=== PATIENT | female | born 1960 | race Caucasian/White ===

== ENCOUNTER 2019-02-06 22:54 | Emergency (ER) | payer MEDICARE, OTHER ==
[~2019-02-06] VITALS: Ht 147.3 cm; Wt 56.7 kg
[~2019-02-06 22:54] MED LIST: ACTICIN 5% CREA60 G1 TOP; ALBUTEROL2.5 MG/31 INH; AMLODIPINE BESYL5 MG PO; AMPHETAMINE SAL15 MG PO; AMPHETAMINE SAL20 M1 PO; ANCEF 1GM1 GM/50 M1 IVPB; BACTROBAN CREAM30 G1 TOP; BENAZEPRIL HCL40 MG PO; BENTYL 20 MG TA20 M1 PO; BENTYL PO; BLOOD PRESSURE MED; BOOST237 M1 PO; COMPAZINE10 MG PO; CYCLOBENZAPRINE10 MG PO; DILAUDID 2 MG TA2 MG PO; DOXYCYCLINE 10100 MG; DULCOLAX5 MG PO; ENOXAPARIN40 MG/0.1 SUBQ; FERREX 150150 MG PO; FERROUS SULFAT140 MG PO; FLEXERIL PO; GENTAMICIN 0.1%15 G2; GENTAMICIN 0.15 CR TOP; HRT; HRT PO; HYDROCODON-ACE1 EAC7 PO; HYDROCODONE-AP1 EAC6 PO; HYDROXYZINE HCL25 M1 PO; IRON325 PO; KEFLEX500 MG PO; LINZESS145 MCG PO; LINZESS290 MCG PO; LOVENOX40 MG/0.4 SUBQ; MECLIZINE HCL25 MG PO; MELOXICAM7.5 MG PO; MIRALAX17 GM PO; MIRALAX255 GM PO; MOBIC7.5 M1 PO; MOBIC7.5 MG PO; MORPHINE SULFATE ER PO; MS CONTIN15 MG PO; MS CONTIN30 MG PO; MUCINEX DM TABL1 TA1 PO; NEOSPORIN TP; NORCO 5-325 TA1 EACH PO; NORVASC5 M1 PO; OMEPRAZOLE 20 M20 M1 PO; ONDANSETRON HCL4 M2 PO; OXYBUTYNIN 5 MG5 M1 PO; OXYCODONE HCL 55 MG PO; OXYMORPHONE HCL30 MG PO; PERCOCET 10-321 EACH PO; PERCOCET PO; POTASSIUM20 PO; PREDNISONE 20 M20 M1 PO; PRILOSEC 20 MG20 MG PO; PRILOSEC PO; PROBIOTIC1 EACH PO; PROTONIX40 M1 PO; PROTONIX40 M4 PO; PROZAC10 MG PO; PROZAC20 MG; REMERON15 MG PO; SENNA PO; SENNA8.6 MG PO; STOOL SOFTENER1 EAC2 PO; TIZANIDINE HCL4 M1 PO; TOPAMAX 100 MG100 MG PO; TRIAMCINOLONE A80 GM TOP; ULTRAM 50MG TAB50 MG PO; UREA CREAM 40%1 TUBE TP; VALACYCLOVIR500 MG PO; VALIUM5 MG PO; VENTOLIN HFA INH8 GM IH; VICODIN 5-5001 EACH PO; VITAMIN D1000 UNI1 PO; ZOFRAN4 MG PO; ZOVIRAX200 MG PO; ZPAK PO; [UNRECOGNIZED DRUG - OTHER] INH; [UNRECOGNIZED DRUG - OTHER] PO; [UNRECOGNIZED DRUG - OTHER] TP; [UNRECOGNIZED DRUG - REMARK]
[2019-02-06] MEDS ORDERED: PROVIGIL 200 M200 MG (23:01)
[2019-02-07 00:17] LABS: ABSOLUTE BASOPHILS 0.1 thou/uL (0.0-0.2); ABSOLUTE EOSINOPHILS 0.3 thou/uL (0.0-0.7); ABSOLUTE LYMPHOCYTES 1.6 thou/uL (0.8-5.3); ABSOLUTE MONOCYTES 0.9 thou/uL (0.0-1.2); ABSOLUTE NEUTROPHILS 6.7 thou/uL (1.6-8.1); BASOPHILS 1.4 %; EOSINOPHILS 3.2 %; HEMATOCRIT 40.2 % (37.0-47.0); HEMOGLOBIN 13.3 gm/dL (12.0-15.0); LYMPHOCYTES 16.4 %; MCH 31.2 pg (26.0-34.0); MCV 94.4 fL (80.0-100.0); MONOCYTES 9.1 %; MPV 8.8 fl. (7.2-11.1); NUCLEATED RBCS 0 /100WBC; PLATELET COUNT* 259 thou/uL (150-400); POLYS 69.9 %; RBC 4.25 mil/uL (4.20-5.00); RDW-CV 13.9 % (10.5-14.5); WBC 9.6 thou/uL (4.0-11.0)
[2019-02-07 00:23] LABS: ANION GAP 15 mmol/L (7-16); BUN 43 mg/dL (7-18); CALCIUM 9.4 mg/dL (8.5-10.1); CHLORIDE 109 mmol/L (98-107); CO2 20 mmol/L (21-32); CREATININE 1.5 mg/dL (0.6-1.3); GLUCOSE 126 mg/dL (70-99); POTASSIUM 3.8 mmol/L (3.5-5.1); SODIUM 144 mmol/L (136-145)
[2019-02-07 00:30] LABS: ALCOHOL < 10 mg/dL (<10); SALICYLATE < 2.8 mg/dL (2.8-20.0)
[2019-02-07 00:32] LABS: ACETAMINOPHEN < 2 ug/mL (10-30); ALKALINE PHOSPHATASE 177 U/L (46-116); SGOT 45 U/L (15-37); SGPT 55 U/L (30-65); TOTAL BILIRUBIN 0.4 mg/dL (<0.1-1.0); TOTAL PROTEIN 7.4 g/dL (6.4-8.2); TROPONIN-I LEVEL <0.06 ng/mL (<0.06)
[2019-02-07 00:35] LABS: ICTOTEST (BILI CONFIRMATORY) Negative (Negative); URINE BILIRUBIN 1+ (Negative); URINE BLOOD NEGATIVE (Negative); URINE CLARITY CLEAR; URINE COLOR DARK YELLOW; URINE GLUCOSE-RANDOM NEGATIVE (Negative); URINE KETONES NEGATIVE (Negative); URINE LEUKOCYTES-REFLEX NEGATIVE (Negative); URINE NITRITE-REFLEX NEGATIVE (Negative); URINE PROTEIN NEGATIVE (Negative); URINE SPECIFIC GRAVITY >= 1.030 (1.005-1.030); URINE UROBILINOGEN 0.2 E.U./dl (0.2-1.0)
[2019-02-07 00:43] LABS: AMP/METHAMP Negative (Negative); BARBITURATES Negative (Negative); BENZODIAZEPINES Negative (Negative); COCAINE Negative (Negative); METHADONE Negative (Negative); OPIATES POSITIVE (Negative); PCP Negative (Negative); THC Negative (Negative)
--- NOTE | 2019-02-07 13:45 | EKG ---
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 MOY : 1960 Requested By: Savita Ward Order Number: [id number] MD: Niall Reddy Measurements Intervals [place] Rate: 107 P: 40 [place]: 145 QRS: -1 QRSD: 89 T: -62 QT: 341 QTc: 455 Interpretive Statements Sinus tachycardia Left atrial enlargement Borderline T abnormalities, diffuse leads Compared to ECG 06/16/2017 12:35:33 T-wave abnormality now present Sinus rhythm no longer present Electronically Signed On 02-07-2019 13:45:15 CDT by Niall Reddy [email or web address] <ELECTRONICALLY SIGNED> By: Niall Reddy MD, [facility] 02/07/19 1345 0018 0018 Niall Reddy MD, [facility] /EPI
[2019-02-07 14:59] VITALS: BP 155/76
== END 2019-02-07 15:01 ==
LOC: M.ERS 22:54
PROVIDERS: Emergency Medicine
DX: T43.692A Poisoning by other psychostimulants, intentional self-harm, initial encounter (principal); F29 Unspecified psychosis not due to a substance or known physiological condition; J45.909 Unspecified asthma, uncomplicated; K58.9 Irritable bowel syndrome, unspecified; K21.9 Gastro-esophageal reflux disease without esophagitis; Z88.6 Allergy status to analgesic agent; Z88.8 Allergy status to other drugs, medicaments and biological substances; Z86.14 Personal history of Methicillin resistant Staphylococcus aureus infection; Z96.653 Presence of artificial knee joint, bilateral; Z90.49 Acquired absence of other specified parts of digestive tract; Z90.710 Acquired absence of both cervix and uterus; Z86.2 Personal history of diseases of the blood and blood-forming organs and certain disorders involving the immune mechanism; Z98.890 Other specified postprocedural states; Y92.89 Other specified places as the place of occurrence of the external cause

== ENCOUNTER 2019-04-20 21:27 | Emergency (ER) | payer MEDICARE, OTHER ==
[~2019-04-20] VITALS: Ht 147.3 cm; Wt 57.6 kg
[~2019-04-20 21:27] MED LIST changes: +PROVIGIL 200 M200 MG
[2019-04-20] MEDS ORDERED: ACETAMINOPHEN-1 EAC1 PO (22:29)
[2019-04-20 22:44] VITALS: BP 165/94
== END 2019-04-20 22:46 | disposition home or self-care (01) ==
LOC: M.ERS 21:27
DX: R68.84 Jaw pain (principal); J45.909 Unspecified asthma, uncomplicated; K58.9 Irritable bowel syndrome, unspecified; K21.9 Gastro-esophageal reflux disease without esophagitis; Z88.6 Allergy status to analgesic agent; Z88.8 Allergy status to other drugs, medicaments and biological substances; Z96.653 Presence of artificial knee joint, bilateral; Z90.49 Acquired absence of other specified parts of digestive tract; Z90.710 Acquired absence of both cervix and uterus; Z86.2 Personal history of diseases of the blood and blood-forming organs and certain disorders involving the immune mechanism; Z98.890 Other specified postprocedural states; Z86.14 Personal history of Methicillin resistant Staphylococcus aureus infection

== ENCOUNTER 2019-07-30 14:51 | Emergency (ER) | payer MEDICARE, OTHER ==
[~2019-07-30] VITALS: Ht 144.8 cm; Wt 39.5 kg
[~2019-07-30 14:51] MED LIST changes: +ACETAMINOPHEN-1 EAC1 PO
[2019-07-30] MEDS ORDERED: METHYLPHENIDATE10 MG PO (15:15)
[2019-07-30 16:07] LABS: URINE BLOOD 2+ (Negative); URINE CLARITY CLEAR; URINE COLOR YELLOW; URINE GLUCOSE-RANDOM NEGATIVE (Negative); URINE KETONES 1+ (Negative); URINE LEUKOCYTES-REFLEX NEGATIVE (Negative); URINE NITRITE-REFLEX NEGATIVE (Negative); URINE PROTEIN TRACE (Negative); URINE SPECIFIC GRAVITY 1.025 (1.005-1.030); URINE UROBILINOGEN 0.2 E.U./dl (0.2-1.0)
[2019-07-30 16:08] LABS: URINE BILIRUBIN 1+ (Negative)
[2019-07-30 16:10] LABS: ICTOTEST (BILI CONFIRMATORY) Negative (Negative)
[2019-07-30 16:15] LABS: AMP/METHAMP Negative (Negative); BARBITURATES Negative (Negative); BENZODIAZEPINES Negative (Negative); COCAINE Negative (Negative); METHADONE Negative (Negative); OPIATES POSITIVE (Negative); PCP Negative (Negative); THC Negative (Negative)
[2019-07-30 16:18] LABS: SQUAMOUS >10 Many /LPF (0-3)
[2019-07-30 16:19] LABS: CRYSTALS None Seen /LPF (None Seen); HYALINE CASTS 0-3 Few /LPF (None Seen); MUCUS None Seen strn/LPF (None Seen)
[2019-07-30 16:20] LABS: URINE WBC-REFLEX 0-5 Rare /HPF (0-5)
[2019-07-30 16:21] LABS: URINE RBC 0-2 Rare /HPF (0-2)
[2019-07-30] MEDS ORDERED: KEFLEX500 M1 PO (16:50)
[2019-07-30 17:03] VITALS: BP 181/113
== END 2019-07-30 17:00 | disposition home or self-care (01) ==
LOC: M.ERS 14:51
PROVIDERS: Nurse Practitioner Family
DX: S80.212A Abrasion, left knee, initial encounter (principal); S30.810A Abrasion of lower back and pelvis, initial encounter; L02.215 Cutaneous abscess of perineum; J45.909 Unspecified asthma, uncomplicated; K58.9 Irritable bowel syndrome, unspecified; K21.9 Gastro-esophageal reflux disease without esophagitis; Z79.899 Other long term (current) drug therapy; Z86.2 Personal history of diseases of the blood and blood-forming organs and certain disorders involving the immune mechanism; Z96.653 Presence of artificial knee joint, bilateral; Z90.49 Acquired absence of other specified parts of digestive tract; Z88.6 Allergy status to analgesic agent; Z88.8 Allergy status to other drugs, medicaments and biological substances; Z98.890 Other specified postprocedural states; Z86.14 Personal history of Methicillin resistant Staphylococcus aureus infection; X58.XXXA Exposure to other specified factors, initial encounter; Y93.89 Activity, other specified; Y92.89 Other specified places as the place of occurrence of the external cause; Y99.8 Other external cause status

== ENCOUNTER 2019-08-01 02:29 | Emergency (ER) | payer MEDICARE, OTHER ==
[~2019-08-01] VITALS: Ht 147.3 cm; Wt 60.3 kg
[~2019-08-01 02:29] MED LIST changes: +KEFLEX500 M1 PO; +METHYLPHENIDATE10 MG PO
[2019-08-01] MEDS ORDERED: PREDNISONE50 MG PO (03:23)
[2019-08-01] MEDS ORDERED: VANOS60 GM TOP (03:23)
[2019-08-01 03:32] VITALS: BP 111/78
== END 2019-08-01 03:32 | disposition home or self-care (01) ==
LOC: M.ERS 02:29
DX: L25.9 Unspecified contact dermatitis, unspecified cause (principal); K58.9 Irritable bowel syndrome, unspecified; K21.9 Gastro-esophageal reflux disease without esophagitis; Z88.6 Allergy status to analgesic agent; Z88.8 Allergy status to other drugs, medicaments and biological substances; Z90.49 Acquired absence of other specified parts of digestive tract; Z96.653 Presence of artificial knee joint, bilateral; Z90.710 Acquired absence of both cervix and uterus; Z86.2 Personal history of diseases of the blood and blood-forming organs and certain disorders involving the immune mechanism; Z98.890 Other specified postprocedural states

== ENCOUNTER → 2019-09-01 | Outpatient (CLI) | payer MEDICARE, OTHER ==
[~2019-09-01] MED LIST changes: +PREDNISONE50 MG PO; +VANOS60 GM TOP
== END ==
LOC: M.RAD 15:34
DX: Z12.31 Encounter for screening mammogram for malignant neoplasm of breast (principal)

== ENCOUNTER 2019-10-06 19:59 | Emergency (ER) | payer MEDICARE, OTHER ==
[~2019-10-06] VITALS: Ht 147.3 cm; Wt 59.4 kg
[2019-10-06] MEDS ORDERED: LINZESS72 MCG PO (20:44)
[2019-10-06 21:12] LABS: URINE BILIRUBIN NEGATIVE (Negative); URINE BLOOD 3+ (Negative); URINE CLARITY TURBID; URINE COLOR BROWN; URINE GLUCOSE-RANDOM NEGATIVE (Negative); URINE KETONES NEGATIVE (Negative); URINE LEUKOCYTES-REFLEX 1+ (Negative); URINE NITRITE-REFLEX NEGATIVE (Negative); URINE PROTEIN 2+ (Negative); URINE SPECIFIC GRAVITY >= 1.030 (1.005-1.030); URINE UROBILINOGEN 0.2 E.U./dl (0.2-1.0)
[2019-10-06 21:15] LABS: AMORPHOUS URATES Moderate /LPF (None Seen); CASTS None Seen /LPF (None Seen); SQUAMOUS 0-3 Few /LPF (0-3)
[2019-10-06 21:16] LABS: BACTERIA-REFLEX >30 Many /HPF (None Seen); URINE RBC >20 Many /HPF (0-2); URINE WBC-REFLEX 6-15 Few /HPF (0-5)
[2019-10-06] MEDS ORDERED: CIPROFLOXACIN500 M1 PO (21:28)
[2019-10-06] MEDS ORDERED: PYRIDIUM200 MG PO (21:28)
[2019-10-06] MEDS ORDERED: VISTARIL 25 MG25 M1 PO (21:28)
[2019-10-06 21:34] VITALS: BP 120/75
== END 2019-10-06 21:36 | disposition home or self-care (01) ==
LOC: M.ERS 19:59
PROVIDERS: Family Medicine
DX: N39.0 Urinary tract infection, site not specified (principal); J45.909 Unspecified asthma, uncomplicated; K58.9 Irritable bowel syndrome, unspecified; K21.9 Gastro-esophageal reflux disease without esophagitis; Z88.6 Allergy status to analgesic agent; Z88.8 Allergy status to other drugs, medicaments and biological substances; Z96.653 Presence of artificial knee joint, bilateral; Z90.49 Acquired absence of other specified parts of digestive tract; Z90.710 Acquired absence of both cervix and uterus; Z86.14 Personal history of Methicillin resistant Staphylococcus aureus infection; Z98.890 Other specified postprocedural states; Z86.2 Personal history of diseases of the blood and blood-forming organs and certain disorders involving the immune mechanism

== ENCOUNTER 2019-10-10 02:00 | Inpatient (IN) | payer MEDICARE, OTHER ==
[~2019-10-10] VITALS: Ht 147.3 cm; Wt 59.0 kg
[~2019-10-10 02:00] MED LIST changes: +CIPROFLOXACIN500 M1 PO; +LINZESS72 MCG PO; +PYRIDIUM200 MG PO; +VISTARIL 25 MG25 M1 PO
[2019-10-10 02:02] VITALS: BP 163/77
[2019-10-10 02:42] LABS: HEMOGLOBIN 12.6 gm/dL (12.0-15.0); MCH 29.3 pg (26.0-34.0); MCHC 33.3 g/dL (28.0-37.0); MPV 8.6 fl. (7.2-11.1); NUCLEATED RBCS 0 /100WBC; PLATELET COUNT* 261 thou/uL (150-400); RBC 4.31 mil/uL (4.20-5.00); RDW-CV 14.2 % (10.5-14.5); WBC 7.5 thou/uL (4.0-11.0)
[2019-10-10 02:54] LABS: URINE BILIRUBIN NEGATIVE (Negative); URINE BLOOD 1+ (Negative); URINE CLARITY SL CLOUDY; URINE COLOR YELLOW; URINE GLUCOSE-RANDOM NEGATIVE (Negative); URINE KETONES NEGATIVE (Negative); URINE LEUKOCYTES-REFLEX NEGATIVE (Negative); URINE NITRITE-REFLEX NEGATIVE (Negative); URINE PROTEIN NEGATIVE (Negative); URINE SPECIFIC GRAVITY 1.015 (1.005-1.030); URINE UROBILINOGEN 0.2 E.U./dl (0.2-1.0)
[2019-10-10 02:55] LABS: CALCIUM 8.6 mg/dL (8.5-10.1); CREATININE 1.1 mg/dL (0.6-1.3); POTASSIUM 3.3 mmol/L (3.5-5.1)
[2019-10-10 03:00] LABS: ALBUMIN 3.6 g/dL (3.4-5.0); TOTAL BILIRUBIN 0.2 mg/dL (<0.1-1.0); TOTAL PROTEIN 6.9 g/dL (6.4-8.2)
[2019-10-10 03:30] LABS: CASTS None Seen /LPF (None Seen); SQUAMOUS 4-10 Moderate /LPF (0-3); URINE RBC 0-2 Rare /HPF (0-2); URINE WBC-REFLEX None Seen /HPF (0-5)
[2019-10-10 03:31] LABS: BACTERIA-REFLEX 1-9 Few /HPF (None Seen)
[2019-10-10 03:32] LABS: AMORPHOUS PHOSPHATES Many /LPF (None Seen)
[2019-10-10 03:55] LABS: ABSOLUTE EOSINOPHILS 0.1 thou/uL (0.0-0.7); ABSOLUTE LYMPHOCYTES 0.5 thou/uL (0.8-5.3); ABSOLUTE MONOCYTES 0.1 thou/uL (0.0-1.2); ABSOLUTE NEUTROPHILS 6.9 thou/uL (1.6-8.1)
[2019-10-10 03:56] LABS: LARGE PLATELETS OCCASIONAL; PLATELET ESTIMATE ADEQUATE
[2019-10-10 06:20] VITALS: BP 156/91
[2019-10-10 06:34] VITALS: BP 157/81
[2019-10-10 08:00] VITALS: BP 135/89; BP 168/124
--- NOTE | 2019-10-10 08:51 | NUR ---
PT ADMITTED TO ROOM 226 @0620. ADMISSION HX AND ASSESSMENT DONE. PT ALERT AND ORIENTED. VSS ON RA. UP AD JULIA. PAIN AND NAUSEA MEDS GIVEN THIS AM. MEDS RECONCILED. NPO. IV SL. PT NOT ON MONITOR. CALL LIGHT WITHIN REACH. WILL CONTINUE TO MONITOR.
--- NOTE | 2019-10-10 10:07 | EKG ---
[place] [address] ELECTROCARDIOGRAM REPORT Name: ASTON GONZALEZ Room: [address] ADM IN .R.#: [id number] Admission: 10/10/19 Attend Phys: lGenn Pino MD Discharge: Date of : 56 Report #: [id number] THIS REPORT FOR: //name// [facility] ED Test Date: 2019-10-10 Test Time: 02:15:58 Pat Name: ASTON GONZALEZ Department: Room: [facility] Gender: F Manager Lvn: : 1960 Requested By: Neymar Coleman Order Number: [id number] MD: Niall Reddy Measurements Intervals [place] Rate: 88 P: 42 LA: 185 QRS: -14 QRSD: 106 T: -5 QT: 432 QTc: 523 Interpretive Statements Sinus rhythm Probable left atrial enlargement Abnormal R-wave progression, late transition Borderline T abnormalities, inferior leads Prolonged QT interval Compared to ECG 02/07/2019 00:18:43 Sinus tachycardia no longer present T-wave abnormality still present Electronically Signed On 10-10-2019 10:07:21 FORKLIFT SUPERVISOR by Niall Reddy [email or web address] <ELECTRONICALLY SIGNED> By: Niall Reddy MD, FAC 10/10/19 1007 4 4 Niall Reddy MD, FAC /EPI
[2019-10-10 10:52] VITALS: BP 139/91
--- NOTE | 2019-10-10 12:01 | NUR ---
ASSUMED PT CARE AT 0730. ASSESSMENT COMPLETED CHARTED. ABLE TO MAKE NEEDS KNOWN. UP TO NURSES DESK FOR PAIN MEDICATION OR SOMETHING EVERY HOUR. C/O RIGHT FLANK PAIN AND GAVE PRN MEDS PER EMAR. PT TRANSFERRED TO [facility] AROUND 1035. WILL CONTINUE TO MONITOR.
--- NOTE | 2019-10-10 13:00 | NUR ---
PT ARRIVED TO ROOM 109 AT APPROX 1040, REPORT RECIEVED FROM IDRIS DAVIS. PT A/O X4, APPEARS ANXIOUS, C/O N/V, PAIN MEDS GIVEN PRIOR TO ARRIVING, PT REPORTS FEELING BETTER. NPO FOR SURGERY. SPOKE TO PTS , UPDATED ON ROOM CHANGE AND SURGERY. WILL CONTINUE WITH PLAN OF CARE
--- NOTE | 2019-10-10 19:56 | NUR ---
I HAVE REVEWED AND AGREE WITH THE ASSESMENT OF IDRIS DAVIS ON 10/10/19
[2019-10-10 20:15] VITALS: BP 132/75
--- NOTE | 2019-10-11 02:51 | NUR ---
RECEIVED REPORT AND ASSUMED CARE AT 1900. VSS. PT REPORTS PAIN, PRN MEDICATION ADMIN PER EMAR. ASSESSMENT COMPLETED CHARTED. PT UP AD JULIA IN ROOM, ON RA. BED LOCKED IN LOWEST POSITION, CALL LIGHT WITHIN REACH.
[2019-10-11 05:44] LABS: ABSOLUTE BASOPHILS 0.1 thou/uL (0.0-0.2); ABSOLUTE EOSINOPHILS 0.3 thou/uL (0.0-0.7); ABSOLUTE LYMPHOCYTES 1.5 thou/uL (0.8-5.3); ABSOLUTE MONOCYTES 0.8 thou/uL (0.0-1.2); ABSOLUTE NEUTROPHILS 3.1 thou/uL (1.6-8.1); BASOPHILS 1.9 %; EOSINOPHILS 5.8 %; HEMATOCRIT 33.7 % (37.0-47.0); HEMOGLOBIN 11.4 gm/dL (12.0-15.0); LYMPHOCYTES 26.1 %; MCH 30.1 pg (26.0-34.0); MCHC 33.9 g/dL (28.0-37.0); MCV 88.8 fL (80.0-100.0); MPV 8.4 fl. (7.2-11.1); NUCLEATED RBCS 0 /100WBC; PLATELET COUNT* 227 thou/uL (150-400); POLYS 53.2 %; RBC 3.79 mil/uL (4.20-5.00); RDW-CV 14.7 % (10.5-14.5); WBC 5.8 thou/uL (4.0-11.0)
[2019-10-11 05:52] LABS: CALCIUM 8.2 mg/dL (8.5-10.1); POTASSIUM 3.4 mmol/L (3.5-5.1)
[2019-10-11 07:35] VITALS: BP 105/57
[2019-10-11] MEDS ORDERED: OXYBUTYNIN 5 MG5 M2 PO (09:50)
[2019-10-11] MEDS ORDERED: BACTRIM DS TAB1 EACH PO (09:51)
[2019-10-11] MEDS ORDERED: FLOMAX0.4 MG PO (09:51)
[2019-10-11] MEDS ORDERED: NORCO 5-325 TA1 EAC1 PO (09:52)
[2019-10-11 11:18] VITALS: BP 105/57
[2019-10-11 11:20] VITALS: BP 105/57
[2019-10-11 12:52] VITALS: BP 105/57
--- NOTE | 2019-10-11 12:52 | NUR ---
PT BELONGINGS GATHERED. IV REMOVED. PRESCRIPTIONS, CARE NOTES, AND DISCHARGE ORDERS GIVEN TO PATIENT. PT DENIED ANY FURTHER QUESTIONS OR CONCERNS AT THIS TIME. FALL RISK PRECAUTIONS IN PLACE. HOURLY ROUNDING COMPLETED. PT LEFT VIA WHEELCHAIR WITH NURSING STAFF TO HOME WITH SPOUSE.
--- NOTE | 2019-10-13 13:30 | OP ---
[address] [address] OPERATIVE REPORT Name: ASTON GONZALEZ Room: [address] IN ..#: [id number] Admission: 10/10/19 Attend Phys: Glenn Pino MD Discharge: 10/11/19 Date of : 56 Report #: [id number] THIS REPORT FOR: //name// CC: Margarito Pino DATE OF SERVICE: 10/10/2019 UROLOGY OPERATIVE NOTE PREOPERATIVE DIAGNOSIS: Right ureteral stone. POSTOPERATIVE DIAGNOSIS: Right ureteral stone. PROCEDURE PERFORMED: 1. Cystoscopy. 2. Right retrograde pyelogram. 3. Right ureteroscopy with laser lithotripsy and stone basket extraction. 4. Right ureteral stent placement. STAFF: Margarito Paez MD COMPLICATIONS: None. DRAINS: A 6 x 24 right ureteral stent. SPECIMENS: Right ureteral stone. ESTIMATED BLOOD LOSS: 0 mL. INDICATIONS: The patient is a 59-year-old female with a history of nephrolithiasis who presented to the ER this morning with right-sided flank pain. She was found to have a 6 mm right distal ureteral stone with proximal hydronephrosis. Her pain was poorly controlled and after a thorough discussion of this, the decision was made to proceed with ureteroscopy. DESCRIPTION OF PROCEDURE: On 10/10/2019, after consent was obtained, the patient was taken to the operating room and placed in supine position. Her genitals were then prepped and draped in normal sterile fashion after she was placed under general anesthesia. She received preoperative IV Cipro for antibiotic coverage. I began the procedure by inserting the 22.5-Estonian rigid cystoscope transurethrally without any difficulty. Once in the bladder, identified the right ureteral orifice. This was cannulated with a 5-Estonian open-ended stent. A retrograde pyelogram was performed, which demonstrated normal caliber ureter with mild hydronephrosis. At this point, a sensor wire was passed into the upper pole. I went through the cystoscope [place] [address] OPERATIVE REPORT Name: ASTON GONZALEZ Room: [address] IN ..#: [id number] Admission: 10/10/19 Attend Phys: Glenn Pino MD Discharge: 10/11/19 Date of : 56 Report #: [id number] semirigid ureteroscope. I passed this up alongside the sensor wire into the distal ureter where I identified the stone. A 365 micron laser fiber was utilized to break this up into four smaller fragments. A 1.5 nitinol basket was then utilized to grasp each of these fragments and pull these out of the urethra without any difficulty. I made one final pass of the ureteroscope up to the level of the UPJ. There was no evidence of any further stone burden and/or injury. I then selected a 6 x 24 stent, which passed up to the upper pole under fluoroscopic guidance and had a good coil in the urinary bladder under direct visual guidance. The patient's bladder was emptied. She was awakened from anesthesia. <ELECTRONICALLY SIGNED> By: Margarito Paez MD 10/13/19 1330 1244 1305[facility] Karma Paez MD /nt
== END 2019-10-11 12:53 | disposition home or self-care (01) | DRG 661 ==
LOC: M.ERS 02:00 → M.TBA-ER 04:16 → M.ORTHSURG 04:16 → M.2W 06:28 → M.ORTHSURG 10:40
PROVIDERS: Emergency Medicine Emergency Medical Services; Urology; ADMIT Internal Medicine
DX: N13.2 Hydronephrosis with renal and ureteral calculous obstruction (principal); Z96.653 Presence of artificial knee joint, bilateral; J45.909 Unspecified asthma, uncomplicated; G47.419 Narcolepsy without cataplexy; K58.9 Irritable bowel syndrome, unspecified; K21.9 Gastro-esophageal reflux disease without esophagitis; E86.0 Dehydration; E87.6 Hypokalemia; I73.9 Peripheral vascular disease, unspecified; Z88.8 Allergy status to other drugs, medicaments and biological substances; Z87.440 Personal history of urinary (tract) infections; Z90.49 Acquired absence of other specified parts of digestive tract; Z90.89 Acquired absence of other organs; Z90.710 Acquired absence of both cervix and uterus; Z79.2 Long term (current) use of antibiotics; Z79.891 Long term (current) use of opiate analgesic; Z79.899 Other long term (current) drug therapy

== ENCOUNTER → 2019-11-16 | Outpatient (CLI) | payer MEDICARE, OTHER ==
[~2019-11-16] MED LIST changes: +BACTRIM DS TAB1 EACH PO; +FLOMAX0.4 MG PO; +NORCO 5-325 TA1 EAC1 PO; +OXYBUTYNIN 5 MG5 M2 PO
== END ==
LOC: M.ULTRA 09:06
DX: N64.4 Mastodynia (principal)

== ENCOUNTER → 2020-05-20 | Emergency (ER) | payer MEDICARE, OTHER ==
[~2020-05-20] VITALS: Ht 147.3 cm; Wt 56.7 kg
[2020-05-20 20:02] VITALS: BP 132/68
== END ==
LOC: M.ERS 18:52
DX: S60.561A Insect bite (nonvenomous) of right hand, initial encounter (principal); K58.9 Irritable bowel syndrome, unspecified; K21.9 Gastro-esophageal reflux disease without esophagitis; J45.909 Unspecified asthma, uncomplicated; Z96.653 Presence of artificial knee joint, bilateral; Z90.49 Acquired absence of other specified parts of digestive tract; Z90.710 Acquired absence of both cervix and uterus; Z86.2 Personal history of diseases of the blood and blood-forming organs and certain disorders involving the immune mechanism; Z98.890 Other specified postprocedural states; Z91.030 Bee allergy status; Z88.6 Allergy status to analgesic agent; Z88.8 Allergy status to other drugs, medicaments and biological substances; W57.XXXA Bitten or stung by nonvenomous insect and other nonvenomous arthropods, initial encounter; Y93.89 Activity, other specified; Y92.89 Other specified places as the place of occurrence of the external cause; Y99.8 Other external cause status

== ENCOUNTER 2020-07-27 18:04 | Emergency (ER) | payer MEDICARE, OTHER ==
[~2020-07-27] VITALS: Ht 147.3 cm; Wt 57.6 kg
[~2020-07-27 18:04] MED LIST changes: -LINZESS72 MCG PO
[2020-07-27] MEDS ORDERED: KLOR-CON 10 ER10 MEQ PO (18:12)
[2020-07-27] MEDS ORDERED: MELOXICAM7.5 MG PO (18:13)
[2020-07-27] MEDS ORDERED: COQ-1030 MG PO (18:13)
[2020-07-27] MEDS ORDERED: VITAMIN D21250 MC1 PO (18:13)
[2020-07-27 19:01] LABS: ABSOLUTE BASOPHILS 0.2 thou/uL (0.0-0.2); ABSOLUTE EOSINOPHILS 0.3 thou/uL (0.0-0.7); ABSOLUTE LYMPHOCYTES 1.5 thou/uL (0.8-5.3); ABSOLUTE MONOCYTES 0.7 thou/uL (0.0-1.2); ABSOLUTE NEUTROPHILS 5.4 thou/uL (1.6-8.1); BASOPHILS 2.2 %; EOSINOPHILS 3.4 %; HEMOGLOBIN 12.8 gm/dL (12.0-15.0); LYMPHOCYTES 19.2 %; MCH 29.4 pg (26.0-34.0); MCHC 32.9 g/dL (28.0-37.0); MCV 89.4 fL (80.0-100.0); MONOCYTES 8.2 %; MPV 8.2 fl. (7.2-11.1); NUCLEATED RBCS 0 /100WBC; PLATELET COUNT* 289 thou/uL (150-400); RBC 4.36 mil/uL (4.20-5.00); RDW-CV 15.3 % (10.5-14.5)
[2020-07-27 19:19] LABS: CALCIUM 9.2 mg/dL (8.5-10.1); CREATININE 0.9 mg/dL (0.6-1.3); POTASSIUM 3.8 mmol/L (3.5-5.1)
[2020-07-27 19:21] LABS: ALBUMIN 3.5 g/dL (3.4-5.0); TOTAL BILIRUBIN 0.3 mg/dL (<0.1-1.0)
[2020-07-27] MEDS ORDERED: NORCO 5-325 TA1 EAC2 PO (20:07)
[2020-07-27 20:50] VITALS: BP 133/76
== END 2020-07-27 21:00 | disposition home or self-care (01) ==
LOC: M.ERS 18:04
PROVIDERS: Nurse Practitioner Family
DX: S30.1XXA Contusion of abdominal wall, initial encounter (principal); S50.02XA Contusion of left elbow, initial encounter; S09.90XA Unspecified injury of head, initial encounter; J45.909 Unspecified asthma, uncomplicated; K21.9 Gastro-esophageal reflux disease without esophagitis; Z79.899 Other long term (current) drug therapy; Z88.6 Allergy status to analgesic agent; Z91.030 Bee allergy status; Z88.8 Allergy status to other drugs, medicaments and biological substances; Z90.49 Acquired absence of other specified parts of digestive tract; Z90.710 Acquired absence of both cervix and uterus; W17.89XA Other fall from one level to another, initial encounter; Y93.89 Activity, other specified; Y92.89 Other specified places as the place of occurrence of the external cause; Y99.8 Other external cause status

== ENCOUNTER 2020-10-18 17:34 | Emergency (ER) | payer MEDICARE, OTHER ==
[~2020-10-18] VITALS: Ht 147.3 cm; Wt 56.7 kg
[~2020-10-18 17:34] MED LIST changes: +COQ-1030 MG PO; +KLOR-CON 10 ER10 MEQ PO; +NORCO 5-325 TA1 EAC2 PO; +VITAMIN D21250 MC1 PO
[2020-10-18 18:09] LABS: URINE BILIRUBIN NEGATIVE (Negative); URINE BLOOD NEGATIVE (Negative); URINE CLARITY CLEAR; URINE COLOR YELLOW; URINE GLUCOSE-RANDOM NEGATIVE (Negative); URINE KETONES NEGATIVE (Negative); URINE LEUKOCYTES-REFLEX NEGATIVE (Negative); URINE NITRITE-REFLEX NEGATIVE (Negative); URINE PROTEIN NEGATIVE (Negative); URINE UROBILINOGEN 0.2 E.U./dl (0.2-1.0)
[2020-10-18 18:24] LABS: INFLUENZA A ANTIGEN Negative (Negative); INFLUENZA B ANTIGEN Negative (Negative)
[2020-10-18] MEDS ORDERED: BUTALB-APAP-CA1 EACH PO (19:27)
[2020-10-18 19:36] VITALS: BP 157/96
== END 2020-10-18 19:36 | disposition home or self-care (01) ==
LOC: M.ERS 17:34
PROVIDERS: Nurse Practitioner Psychiatric/Mental Health
DX: G44.209 Tension-type headache, unspecified, not intractable (principal); J45.909 Unspecified asthma, uncomplicated; K21.9 Gastro-esophageal reflux disease without esophagitis; Z86.2 Personal history of diseases of the blood and blood-forming organs and certain disorders involving the immune mechanism; Z90.49 Acquired absence of other specified parts of digestive tract; Z90.710 Acquired absence of both cervix and uterus; Z79.899 Other long term (current) drug therapy; Z88.8 Allergy status to other drugs, medicaments and biological substances; Z91.030 Bee allergy status; Z20.828 Contact with and (suspected) exposure to other viral communicable diseases

== ENCOUNTER 2020-11-06 17:31 | Emergency (ER) | payer MEDICARE, OTHER ==
[~2020-11-06] VITALS: Ht 147.3 cm; Wt 59.0 kg
[~2020-11-06 17:31] MED LIST changes: +BUTALB-APAP-CA1 EACH PO
[2020-11-06 18:10] LABS: ABSOLUTE BASOPHILS 0.1 thou/uL (0.0-0.2); ABSOLUTE EOSINOPHILS 0.3 thou/uL (0.0-0.7); ABSOLUTE MONOCYTES 0.6 thou/uL (0.0-1.2); ABSOLUTE NEUTROPHILS 4.4 thou/uL (1.6-8.1); BASOPHILS 1.6 %; EOSINOPHILS 3.6 %; HEMATOCRIT 39.9 % (37.0-47.0); HEMOGLOBIN 13.2 gm/dL (12.0-15.0); MCH 30.3 pg (26.0-34.0); MCHC 33.1 g/dL (28.0-37.0); MCV 91.6 fL (80.0-100.0); MONOCYTES 8.7 %; MPV 8.3 fl. (7.2-11.1); NUCLEATED RBCS 0 /100WBC; PLATELET COUNT* 292 thou/uL (150-400); POLYS 59.1 %; RBC 4.36 mil/uL (4.20-5.00); RDW-CV 15.5 % (10.5-14.5); WBC 7.4 thou/uL (4.0-11.0)
[2020-11-06 18:19] LABS: CALCIUM 8.5 mg/dL (8.5-10.1); CREATININE 1.2 mg/dL (0.6-1.3); POTASSIUM 4.1 mmol/L (3.5-5.1)
[2020-11-06 18:23] LABS: ALBUMIN 3.6 g/dL (3.4-5.0); TOTAL BILIRUBIN 0.2 mg/dL (<0.1-1.0); TOTAL PROTEIN 6.7 g/dL (6.4-8.2)
[2020-11-06 19:57] LABS: URINE BILIRUBIN NEGATIVE (Negative); URINE BLOOD NEGATIVE (Negative); URINE CLARITY CLEAR; URINE COLOR YELLOW; URINE GLUCOSE-RANDOM NEGATIVE (Negative); URINE KETONES NEGATIVE (Negative); URINE LEUKOCYTES-REFLEX NEGATIVE (Negative); URINE NITRITE-REFLEX NEGATIVE (Negative); URINE PROTEIN NEGATIVE (Negative); URINE SPECIFIC GRAVITY >= 1.030 (1.005-1.030); URINE UROBILINOGEN 0.2 E.U./dl (0.2-1.0)
[2020-11-06] MEDS ORDERED: MEDROLDOSEPACK PO (20:10)
[2020-11-06 20:19] VITALS: BP 134/65
== END 2020-11-06 20:19 | disposition home or self-care (01) ==
LOC: M.ERS 17:31
PROVIDERS: Nurse Practitioner Family
DX: S39.012A Strain of muscle, fascia and tendon of lower back, initial encounter (principal); J45.909 Unspecified asthma, uncomplicated; K21.9 Gastro-esophageal reflux disease without esophagitis; K58.9 Irritable bowel syndrome, unspecified; Z96.653 Presence of artificial knee joint, bilateral; Z90.49 Acquired absence of other specified parts of digestive tract; Z90.710 Acquired absence of both cervix and uterus; Z86.2 Personal history of diseases of the blood and blood-forming organs and certain disorders involving the immune mechanism; Z98.890 Other specified postprocedural states; Z86.14 Personal history of Methicillin resistant Staphylococcus aureus infection; X50.9XXA Other and unspecified overexertion or strenuous movements or postures, initial encounter; Y93.89 Activity, other specified; Y92.89 Other specified places as the place of occurrence of the external cause; Y99.8 Other external cause status

== ENCOUNTER 2020-12-04 16:58 | Emergency (ER) | payer MEDICARE, OTHER ==
[~2020-12-04] VITALS: Ht 147.3 cm; Wt 59.0 kg
[~2020-12-04 16:58] MED LIST changes: +MEDROLDOSEPACK PO
[2020-12-04 19:07] VITALS: BP 133/73
--- NOTE | 2020-12-05 12:45 | EKG ---
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 : 1960 Requested By: Rakan Gutiérrez Order Number: [id number] MD: Niall Reddy Measurements Intervals [place] Rate: 91 P: 52 CT: 159 QRS: -23 QRSD: 100 T: 44 QT: 410 QTc: 505 Interpretive Statements Sinus rhythm Left atrial enlargement Borderline left axis deviation Borderline T abnormalities, anterior leads Prolonged QT interval Compared to ECG 10/10/2019 02:15:58 No significant changes Electronically Signed On 12-05-2020 12:45:13 DRY CAN TENDER by Niall Reddy [email or web address] <ELECTRONICALLY SIGNED> By: Niall Reddy MD, [facility] 12/05/20 1245 1753 1753 Niall Reddy MD, [facility] /EPI
== END 2020-12-04 19:08 | disposition home or self-care (01) ==
LOC: M.ERS 16:58
DX: G43.909 Migraine, unspecified, not intractable, without status migrainosus (principal); I10 Essential (primary) hypertension; K58.9 Irritable bowel syndrome, unspecified; J45.909 Unspecified asthma, uncomplicated; K21.9 Gastro-esophageal reflux disease without esophagitis; Z96.653 Presence of artificial knee joint, bilateral; Z90.49 Acquired absence of other specified parts of digestive tract; Z90.710 Acquired absence of both cervix and uterus; Z98.890 Other specified postprocedural states; Z86.2 Personal history of diseases of the blood and blood-forming organs and certain disorders involving the immune mechanism; Z86.14 Personal history of Methicillin resistant Staphylococcus aureus infection; Z88.8 Allergy status to other drugs, medicaments and biological substances; Z88.6 Allergy status to analgesic agent; Z91.030 Bee allergy status

== ENCOUNTER 2021-02-13 18:49 | Emergency (ER) | payer MEDICARE, OTHER ==
[~2021-02-13] VITALS: Ht 147.3 cm; Wt 61.7 kg
[2021-02-13] MEDS ORDERED: PREDNISONE 10 M10 MG PO (20:33)
[2021-02-13 20:35] VITALS: BP 124/91
== END 2021-02-13 20:35 | disposition home or self-care (01) ==
LOC: M.ERS 18:49
DX: G89.29 Other chronic pain (principal); M54.41 Lumbago with sciatica, right side; Z88.8 Allergy status to other drugs, medicaments and biological substances; Z88.6 Allergy status to analgesic agent; Z91.030 Bee allergy status; Z79.899 Other long term (current) drug therapy; Z96.653 Presence of artificial knee joint, bilateral; Z90.710 Acquired absence of both cervix and uterus

== ENCOUNTER → 2021-02-14 | Outpatient (CLI) | payer MEDICARE, OTHER ==
[~2021-02-14] MED LIST changes: +PREDNISONE 10 M10 MG PO
== END ==
LOC: M.MRI 08:15
PROVIDERS: ATTEND Pain Medicine Interventional Pain Medicine
DX: Z12.31 Encounter for screening mammogram for malignant neoplasm of breast (principal); M47.26 Other spondylosis with radiculopathy, lumbar region; M51.15 Intervertebral disc disorders with radiculopathy, thoracolumbar region; M43.16 Spondylolisthesis, lumbar region; M48.061 Spinal stenosis, lumbar region without neurogenic claudication

== ENCOUNTER 2021-03-12 09:45 | Inpatient (IN) | payer MEDICARE, OTHER ==
[~2021-03-12] VITALS: Ht 147.3 cm; Wt 65.8 kg
--- NOTE | ~2021-03-12 | EEG ---
[address] [address] EEG STUDY REPORT Name: ASTON GONZALEZ Room: [address] IN .R.#: [id number] Admission: 03/12/21 Attend Phys: Regan Ackerman MD Discharge: 03/14/21 Date of : 56 Report #: [id number] THIS REPORT FOR: cc: Margarito Persaud MD, Eric K. MD Khosla, Parveen K. MD ~ DOC #: [id number] Dave Milton MD DATE OF SERVICE: 03/14/2021 This patient is being evaluated for altered mental status. EEG was done by placing the electrode by standard 10-20 system of electrode placement. Both referential and sequential montages were used for recording. Background activity in this patient's EEG is about 8-9 Hz and 30 microvolt. The patient repeatedly go to sleep and that is associated with bilateral slowing and vertex sharp waves. Photic stimulation is unremarkable. Throughout the record, no active epileptiform activity was noticed. IMPRESSION: This patient's EEG is showing intermixed slowing. That is a nonspecific abnormality which can occur with dementia, encephalopathy, effect of psychotropic medication, etc. Clinical correlation is recommended. Dave Milton MD PK/JO/MOH By: 1440 1541Pector Milton MD /patricio
--- NOTE | ~2021-03-12 | CON ---
[address] [address] CONSULTATION Name: CHACESARAHYASTON RICO LIAM Room: [address] IN M.R.#: [id number] Admission: 03/12/21 Attend Phys: Regan Ackerman MD Discharge: Date of : 56 Report #: [id number] THIS REPORT FOR: cc: Margarito Persaud MD, Eric K. MD Khosla, Parveen K. MD ~ DOC #: [id number] Dave Milton MD DATE OF CONSULTATION: 03/13/2021 HISTORY OF PRESENT ILLNESS: This is a 60-year-old female patient who has a pretty involved neurological history. She was admitted with some altered mental status, but she was found to be hyponatremic and she is doing better. There is some question of an episode where she passed out and another episode where she had some speech difficulty. Complicated situation is that she said she was diagnosed with narcolepsy. When I asked her to describe her symptoms of narcolepsy, she did not do very well, but she said she had 3 sleep studies that showed narcolepsy. She used to go to a neurologist here, but then she got to a citizenship instructor to subspecialize in sleep and he told her that he does not think that she has narcolepsy. She was upset with that. I do not know whether she has ever been tried on any migraine specific medication. She said she has asked for it and she was never given, so she takes Ritalin on a regular basis. The other history in that regard is that the patient says she has migraine headache is a longstanding process, but it is difficult to tell from the description whether that is migraine headache or whether that is really stressed headache. She says she is under a lot of stress. She has some joint pain, and she takes narcotics for that. She did not tell me how much narcotics she takes. REVIEW OF SYSTEMS: A 14-point review of systems was carried out and that was a relevant 14-point review of system. PAST MEDICAL HISTORY: Positive for a diagnosis of narcolepsy, which has been questioned by a sleep physician. FAMILY HISTORY: Negative for early age stroke. SOCIAL HISTORY: She says she does not drink alcohol. PHYSICAL EXAMINATION: NEUROLOGIC: She is alert. She can tell me what month it is. She did not tell me what date it is. She could tell me what hospital she is in, but did not tell me who the president is because she says she does not like [place] [address] CONSULTATION Name: CHACESARAHYJACKYASTON LIAM Room: [address] IN ..#: [id number] Admission: 03/12/21 Attend Phys: Regan Ackerman MD Discharge: Date of : 56 Report #: [id number] examination and neuromuscular examination is mostly unremarkable. There is no cerebellar sign. There is no meningeal sign. There is no carotid bruit. CARDIORESPIRATORY: Unremarkable. VITAL SIGNS: Blood pressure is 127/90, ____, temperature is 98. LABORATORY DATA: White count is 5.9. She did have a CT of the head, which appear unremarkable. IMPRESSION AND PLAN: 1. She has a history of narcolepsy, but the diagnosis has been questioned by sleep specialist. I do not have records. I do not know why was that question. I told her that she needed to go to somebody specializing in sleep and probably have a repeat sleep study or get the results of old sleep studies and then decide what medication she needs to be on and if she needs to be on, then some narcolepsy specific medication may be more appropriate. 2. I do not know why she has speech difficulty or a passing out spell. It is unlikely that was a neurological event, but I am going to get an EEG to make sure there is no seizure as she is on Ritalin and I get an MRI and a carotid Doppler. If those shows some abnormality, then she may need some further workup. Otherwise, she should make a followup appointment with the speech specialist for addressing the question of narcolepsy. Thank you very much for this referral and if you have any questions, please feel free to contact me. I spent more than 50 minutes of time taking care of this patient today and majority was spent counseling the patient, coordinating care and looking at the records and all the imaging studies that she has. She has been to this hospital multiple times. Some of them has been for kidney pain because she claims that she has a repeated kidney stone. She also has been admitted with encephalopathy here in the past. MD BECCA Ceron/MARILIA/JM By: 1358 2158Dave Milton MD /nt
[2021-03-12 09:54] VITALS: BP 145/95
[2021-03-12 10:49] LABS: ABSOLUTE BASOPHILS 0.1 thou/uL (0.0-0.2); ABSOLUTE EOSINOPHILS 0.2 thou/uL (0.0-0.7); ABSOLUTE MONOCYTES 0.8 thou/uL (0.0-1.2); ABSOLUTE NEUTROPHILS 7.6 thou/uL (1.6-8.1); BASOPHILS 0.7 %; HEMATOCRIT 43.1 % (37.0-47.0); HEMOGLOBIN 14.5 gm/dL (12.0-15.0); LYMPHOCYTES 10.5 %; MCH 30.5 pg (26.0-34.0); MCHC 33.7 g/dL (28.0-37.0); MCV 90.5 fL (80.0-100.0); MONOCYTES 7.9 %; MPV 7.7 fl. (7.2-11.1); NUCLEATED RBCS 0 /100WBC; PLATELET COUNT* 272 thou/uL (150-400); POLYS 78.9 %; RBC 4.77 mil/uL (4.20-5.00); RDW-CV 16.6 % (10.5-14.5); WBC 9.6 thou/uL (4.0-11.0)
[2021-03-12 10:59] LABS: ANION GAP < 0 mmol/L (7-16); BUN 24 mg/dL (7-18); CHLORIDE 102 mmol/L (98-107); CO2 27 mmol/L (21-32); CREATININE 1.2 mg/dL (0.6-1.3); GLUCOSE 88 mg/dL (70-99); POTASSIUM 3.2 mmol/L (3.5-5.1); SODIUM 122 mmol/L (136-145)
[2021-03-12 11:03] LABS: ALKALINE PHOSPHATASE 106 U/L (46-116); MAGNESIUM 2.3 mg/dL (1.8-2.4); SGOT 20 U/L (15-37); SGPT 19 U/L (30-65); TOTAL BILIRUBIN 0.4 mg/dL (<0.1-1.0); TOTAL PROTEIN 7.7 g/dL (6.4-8.2)
[2021-03-12 13:13] LABS: URINE BILIRUBIN NEGATIVE (Negative); URINE BLOOD NEGATIVE (Negative); URINE CLARITY CLEAR; URINE COLOR YELLOW; URINE GLUCOSE-RANDOM NEGATIVE (Negative); URINE KETONES NEGATIVE (Negative); URINE LEUKOCYTES TRACE (Negative); URINE NITRITE NEGATIVE (Negative); URINE PROTEIN NEGATIVE (Negative); URINE SPECIFIC GRAVITY 1.015 (1.005-1.030); URINE UROBILINOGEN 0.2 E.U./dl (0.2-1.0)
[2021-03-12 13:18] LABS: SQUAMOUS >10 Many /LPF (0-3); URINE RBC None Seen /HPF (0-2); URINE WBC 0-5 Rare /HPF (0-5)
[2021-03-12 13:19] LABS: CRYSTALS None Seen /LPF (None Seen); MUCUS None Seen strn/LPF (None Seen)
[2021-03-12 13:23] LABS: CASTS None Seen /LPF (None Seen)
--- NOTE | 2021-03-12 15:38 | EKG ---
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 : 1960 Requested By: Regan Ackerman Order Number: [id number] Darlene MD: Sarath Cleaning Measurements Intervals [place] Rate: 111 P: 47 FL: 154 QRS: -15 QRSD: 91 T: 7 QT: 342 QTc: 465 Interpretive Statements Sinus tachycardia Left atrial enlargement Borderline left axis deviation Abnormal R-wave progression, late transition Compared to ECG 12/04/2020 17:53:53 Sinus rate has increased T-wave abnormality no longer present Prolonged QT interval no longer present Electronically Signed On 03-12-2021 15:38:23 CDT by Sarath Cleaning [email or web address] <ELECTRONICALLY SIGNED> By: Sarath Cleaning MD, [facility] 03/12/21 1538 0956 Sarath Cleaning MD, [facility] /EPI
[2021-03-12 15:51] LABS: AMP/METHAMP Negative (Negative); BARBITURATES Negative (Negative); BENZODIAZEPINES Negative (Negative); COCAINE Negative (Negative); METHADONE Negative (Negative); OPIATES Negative (Negative); PCP Negative (Negative); THC Negative (Negative)
[2021-03-12 17:00] VITALS: BP 151/90
[2021-03-12 17:50] LABS: CALCIUM 9.5 mg/dL (8.5-10.1); CREATININE 1.1 mg/dL (0.6-1.3); POTASSIUM 3.6 mmol/L (3.5-5.1)
[2021-03-12 18:30] VITALS: BP 151/90
[2021-03-12 22:30] VITALS: BP 132/82
[2021-03-12 23:50] VITALS: BP 130/78
[2021-03-13 04:30] VITALS: BP 132/80
[2021-03-13 04:48] LABS: ABSOLUTE BASOPHILS 0.1 thou/uL (0.0-0.2); ABSOLUTE EOSINOPHILS 0.3 thou/uL (0.0-0.7); ABSOLUTE LYMPHOCYTES 1.2 thou/uL (0.8-5.3); ABSOLUTE MONOCYTES 0.6 thou/uL (0.0-1.2); ABSOLUTE NEUTROPHILS 3.7 thou/uL (1.6-8.1); BASOPHILS 1.2 %; LYMPHOCYTES 20.8 %; MCH 30.5 pg (26.0-34.0); MCHC 33.2 g/dL (28.0-37.0); MCV 91.9 fL (80.0-100.0); MONOCYTES 9.6 %; MPV 7.8 fl. (7.2-11.1); NUCLEATED RBCS 0 /100WBC; PLATELET COUNT* 234 thou/uL (150-400); POLYS 63.4 %; RBC 3.92 mil/uL (4.20-5.00); RDW-CV 16.6 % (10.5-14.5); WBC 5.9 thou/uL (4.0-11.0)
[2021-03-13 04:59] LABS: CALCIUM 8.9 mg/dL (8.5-10.1); CREATININE 1.1 mg/dL (0.6-1.3); POTASSIUM 3.3 mmol/L (3.5-5.1)
[2021-03-13 09:09] VITALS: BP 136/87
[2021-03-13 13:25] VITALS: BP 127/90
[2021-03-13 16:59] VITALS: BP 132/73
[2021-03-13 20:00] VITALS: BP 158/93
[2021-03-14] VITALS: BP 150/86
[2021-03-14 04:00] VITALS: BP 150/90
[2021-03-14 05:06] LABS: HEMATOCRIT 36.2 % (37.0-47.0); MCH 30.6 pg (26.0-34.0); MCHC 33.2 g/dL (28.0-37.0); MCV 92.3 fL (80.0-100.0); RBC 3.92 mil/uL (4.20-5.00); RDW-CV 17.1 % (10.5-14.5); WBC 5.7 thou/uL (4.0-11.0)
[2021-03-14 05:43] LABS: ALBUMIN 2.9 g/dL (3.4-5.0); CALCIUM 8.7 mg/dL (8.5-10.1); CREATININE 0.8 mg/dL (0.6-1.3); POTASSIUM 3.4 mmol/L (3.5-5.1); TOTAL BILIRUBIN 0.3 mg/dL (<0.1-1.0); TOTAL PROTEIN 5.7 g/dL (6.4-8.2)
[2021-03-14 08:41] VITALS: BP 166/98
[2021-03-14 11:52] VITALS: BP 166/98
[2021-03-14 12:20] VITALS: BP 154/93
--- NOTE | 2021-03-17 12:38 | CON ---
[address] [address] CONSULTATION Name: ASTON GONZAELZ Room: [address]#: [id number] Admission: 03/12/21 Attend Phys: Regan Ackerman MD Discharge: 03/14/21 Date of : 56 Report #: [id number] THIS REPORT FOR: cc: Margarito Persaud MD, Eric K. MD Arakelov, Alexandr V. MD ~ DOC #: [id number] Ananda Watson MD DATE OF CONSULTATION: 03/13/2021 REQUESTING PHYSICIAN: Regan Ackerman MD REASON FOR CONSULTATION: Hyponatremia. HISTORY OF PRESENT ILLNESS: The patient is a 60-year-old female with medical history significant for anxiety problems, history of kidney stones, chronic pain. She was on Ritalin at home, presents after passing out. The patient admits that she has very poor intake of water. MEDICATIONS: Prior to admission included prednisone, valacyclovir, Protonix, potassium chloride, CoQ10, Meloxicam, Flexeril, Topamax, albuterol. SOCIAL HISTORY: No tobacco or alcohol abuse. FAMILY HISTORY: No problems with hyponatremia. REVIEW OF SYSTEMS: Feels fine now. States that she is hungry and wants to eat and also wants to go home. PHYSICAL EXAMINATION: GENERAL: Awake, alert, oriented, no acute distress. VITAL SIGNS: Reviewed. NECK: Supple. LUNGS: Clear. CARDIOVASCULAR: Regular rate. ABDOMEN: Soft. EXTREMITIES: Lower extremities no edema. LABORATORY DATA: Blood work revealed serum sodium of 122. Initially, she was given saline in the ER, her sodium went up from 122-140 from 10:00 a.m. until 05:00 p.m. yesterday, but from 05:00 p.m. until this morning it went up only from 140-145. ASSESSMENT AND PLAN: Hyponatremia, most likely due to volume depletion that was done with rapid correction of the sodium, but again last 12 [place] [address] CONSULTATION Name: ASTON GONZALEZ Room: [address] IN [facility].#: [id number] Admission: 03/12/21 Attend Phys: Regan Ackerman MD Discharge: 03/14/21 Date of : 56 Report #: [id number] slowed down to 145, it is within normal limits. Again, it jumped from 122-145. There is a rapid jump, but over the last 12 hours, which increases significantly slowed down. Most likely that hyponatremia was due to volume depletion, because it is corrected with IV saline. Because this is a little rapid response, I will give her hypotonic fluids for now, monitor her sodium, but overall she is doing fine. I will sign off and please call me if there are any questions. Ananda Watson MD MABLE <ELECTRONICALLY SIGNED> By: Ananda Watson MD 03/17/21 1238 1018 1710Alebalwinder Watson MD /nt
== END 2021-03-14 13:00 | disposition home or self-care (01) | DRG 640 ==
LOC: M.ERS 09:45 → M.TBA-ER 13:01 → M.2W 13:01
PROVIDERS: Emergency Medicine; Family Medicine; Internal Medicine Nephrology; ADMIT Internal Medicine; ATTEND Internal Medicine
DX: E87.1 Hypo-osmolality and hyponatremia (principal); G93.41 Metabolic encephalopathy; G89.29 Other chronic pain; F41.9 Anxiety disorder, unspecified; K21.9 Gastro-esophageal reflux disease without esophagitis; G47.419 Narcolepsy without cataplexy; M19.90 Unspecified osteoarthritis, unspecified site; E87.6 Hypokalemia; J45.909 Unspecified asthma, uncomplicated; Z96.653 Presence of artificial knee joint, bilateral; Z20.822 Contact with and (suspected) exposure to COVID-19; Z90.710 Acquired absence of both cervix and uterus; Z90.49 Acquired absence of other specified parts of digestive tract; Z88.8 Allergy status to other drugs, medicaments and biological substances; Z98.891 History of uterine scar from previous surgery; Z79.899 Other long term (current) drug therapy; Z91.030 Bee allergy status

== ENCOUNTER 2021-06-04 10:12 | Emergency (ER) | payer MEDICARE, OTHER ==
[~2021-06-04] VITALS: Ht 149.9 cm; Wt 59.0 kg
[2021-06-04 10:43] LABS: URINE BILIRUBIN NEGATIVE (Negative); URINE BLOOD NEGATIVE (Negative); URINE CLARITY CLEAR; URINE COLOR YELLOW; URINE GLUCOSE-RANDOM NEGATIVE (Negative); URINE KETONES NEGATIVE (Negative); URINE LEUKOCYTES NEGATIVE (Negative); URINE NITRITE NEGATIVE (Negative); URINE PROTEIN NEGATIVE (Negative); URINE UROBILINOGEN 0.2 E.U./dl (0.2-1.0)
[2021-06-04 12:00] LABS: ABSOLUTE BASOPHILS 0.1 thou/uL (0.0-0.2); ABSOLUTE EOSINOPHILS 0.2 thou/uL (0.0-0.7); ABSOLUTE LYMPHOCYTES 1.7 thou/uL (0.8-5.3); ABSOLUTE MONOCYTES 0.6 thou/uL (0.0-1.2); ABSOLUTE NEUTROPHILS 6.1 thou/uL (1.6-8.1); BASOPHILS 1.3 %; EOSINOPHILS 2.3 %; HEMATOCRIT 43.9 % (37.0-47.0); HEMOGLOBIN 14.4 gm/dL (12.0-15.0); LYMPHOCYTES 19.6 %; MCHC 32.7 g/dL (28.0-37.0); MCV 91.5 fL (80.0-100.0); MONOCYTES 7.3 %; MPV 8.6 fl. (7.2-11.1); NUCLEATED RBCS 0 /100WBC; PLATELET COUNT* 268 thou/uL (150-400); POLYS 69.5 %; RDW-CV 14.6 % (10.5-14.5); WBC 8.8 thou/uL (4.0-11.0)
[2021-06-04 12:11] LABS: CALCIUM 9.3 mg/dL (8.5-10.1); CREATININE 0.9 mg/dL (0.6-1.3); POTASSIUM 3.4 mmol/L (3.5-5.1)
[2021-06-04 12:15] LABS: ALBUMIN 3.9 g/dL (3.4-5.0); TOTAL BILIRUBIN 0.4 mg/dL (<0.1-1.0); TOTAL PROTEIN 7.1 g/dL (6.4-8.2)
[2021-06-04] MEDS ORDERED: ZOFRAN ODT4 MG PO (13:40)
[2021-06-04 13:55] VITALS: BP 156/71
== END 2021-06-04 13:55 | disposition home or self-care (01) ==
LOC: M.ERS 10:12
PROVIDERS: Emergency Medicine
DX: K52.9 Noninfective gastroenteritis and colitis, unspecified (principal); J45.909 Unspecified asthma, uncomplicated; K21.9 Gastro-esophageal reflux disease without esophagitis; Z98.890 Other specified postprocedural states; Z90.49 Acquired absence of other specified parts of digestive tract; Z90.710 Acquired absence of both cervix and uterus; Z79.899 Other long term (current) drug therapy; Z79.891 Long term (current) use of opiate analgesic; Z79.1 Long term (current) use of non-steroidal anti-inflammatories (NSAID); Z79.51 Long term (current) use of inhaled steroids; Z88.5 Allergy status to narcotic agent; Z88.8 Allergy status to other drugs, medicaments and biological substances; Z88.6 Allergy status to analgesic agent; Z91.030 Bee allergy status; Z91.041 Radiographic dye allergy status

== ENCOUNTER 2021-07-24 11:41 | Inpatient (IN) | payer MEDICARE, OTHER ==
[2021-07-23 20:30] VITALS: BP 141/67
[~2021-07-24] VITALS: Ht 147.3 cm; Wt 58.2 kg
[~2021-07-24 11:41] MED LIST changes: +ZOFRAN ODT4 MG PO
[2021-07-24 12:02] VITALS: BP 153/116
[2021-07-24] MEDS ORDERED: HORMONE REPLACEMENT (12:09)
[2021-07-24 12:39] LABS: URINE BLOOD NEGATIVE (Negative); URINE CLARITY CLEAR; URINE COLOR YELLOW; URINE GLUCOSE-RANDOM NEGATIVE (Negative); URINE KETONES 1+ (Negative); URINE LEUKOCYTES-REFLEX TRACE (Negative); URINE NITRITE-REFLEX NEGATIVE (Negative); URINE PROTEIN TRACE (Negative); URINE SPECIFIC GRAVITY >= 1.030 (1.005-1.030); URINE UROBILINOGEN 0.2 E.U./dl (0.2-1.0)
[2021-07-24 13:01] LABS: ICTOTEST (BILI CONFIRMATORY) Negative (Negative); URINE BILIRUBIN 1+ (Negative)
[2021-07-24 13:02] LABS: ABSOLUTE BASOPHILS 0.1 thou/uL (0.0-0.2); ABSOLUTE EOSINOPHILS 0.2 thou/uL (0.0-0.7); ABSOLUTE LYMPHOCYTES 1.5 thou/uL (0.8-5.3); ABSOLUTE NEUTROPHILS 7.5 thou/uL (1.6-8.1); EOSINOPHILS 2.1 %; HEMATOCRIT 43.9 % (37.0-47.0); HEMOGLOBIN 14.2 gm/dL (12.0-15.0); LYMPHOCYTES 14.5 %; MCH 29.2 pg (26.0-34.0); MCHC 32.4 g/dL (28.0-37.0); MCV 90.2 fL (80.0-100.0); MONOCYTES 9.9 %; MPV 8.4 fl. (7.2-11.1); NUCLEATED RBCS 0 /100WBC; PLATELET COUNT* 316 thou/uL (150-400); POLYS 72.5 %; RBC 4.87 mil/uL (4.20-5.00); RDW-CV 14.3 % (10.5-14.5); WBC 10.4 thou/uL (4.0-11.0)
[2021-07-24 13:03] LABS: SQUAMOUS 0-3 Few /LPF (0-3)
[2021-07-24 13:04] LABS: CALCIUM OXALATE 4-10 Moderate /LPF (None Seen); URINE WBC-REFLEX 0-5 Rare /HPF (0-5)
[2021-07-24 13:05] LABS: BACTERIA-REFLEX 1-9 Few /HPF (None Seen); HYALINE CASTS 0-3 Few /LPF (None Seen); URINE RBC 0-2 Rare /HPF (0-2)
[2021-07-24 13:16] LABS: POTASSIUM 3.4 mmol/L (3.5-5.1)
[2021-07-24 13:20] LABS: ALBUMIN 3.9 g/dL (3.4-5.0); TOTAL BILIRUBIN 0.6 mg/dL (<0.1-1.0); TOTAL PROTEIN 7.7 g/dL (6.4-8.2)
--- NOTE | 2021-07-24 14:47 | EKG ---
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: : 1960 Requested By: Magda Kemp Order Number: [id number] MD: Moiz Andrea Measurements Intervals [place] Rate: 158 P: 145 MD: 83 QRS: 12 QRSD: 90 T: 54 QT: 307 QTc: 498 Interpretive Statements Supraventricular tachycardia Premature atrial complexes Consider right atrial enlargement Nonspecific T abnrm, anterolateral leads Baseline wander in lead(s) V6 Compared to ECG 03/12/2021 09:56:25 Sinus tachycardia no longer present Atrial abnormality no longer present Electronically Signed On 07-24-2021 14:46:41 CDT by Moiz Andrea [email or web address] <ELECTRONICALLY SIGNED> By: Moiz Andrea MD, FACC 07/24/21 1446 1259 1259 Moiz Andrea MD, FACC /EPI
--- NOTE | 2021-07-24 16:33 | 2DMMODE ---
[place] [address] 2 D/M-MODE ECHOCARDIOGRAM Name: ASTON GONZALEZ Room: [facility]6 ADM IN .R.#: [id number] Admission: 07/24/21 Attend Phys: Elias Menon Discharge: Date of : 56 Date of Service: 07/24/21 1633 Report #: [id number] THIS REPORT FOR: cc: Margarito Persaud MD, Eric K. MD Liston, Michael J. MD [facility] ~ APPROVED REPORT Study performed: 07/24/2021 15:56:51 EXAM: Comprehensive 2D, Doppler, and color-flow Echocardiogram Patient Location: ER BSA: 1.49 HR: 65 bpm BP: 144/92 mmHg Other Information Study Quality: Adequate Indications Arrhythmia 2D Dimensions IVSd: 11.95 (7-11mm) LVOT Diam: 20.32 (18-24mm) LVDd: 42.33 mm PWd: 10.25 (7-11mm) Ascending Ao: 27.61 (22-36mm) LVDs: 27.09 (25-40mm) Aortic Root: 31.28 mm Volumes Left Atrial Volume (Systole) LA ESV Index: 15.70 mL/m2 Aortic Valve AoV Peak Alex.: 1.11 m/s AO Peak Gr.: 4.95 mmHg LVOT Max P.81 mmHg AO Mean Gr.: 3.25 mmHg LVOT Mean P.91 mmHg LVOT Max V: 0.67 m/s AO V2 VTI: 25.88 cm LVOT Mean V: 0.45 m/s MABLE (VTI): 1.81 cm2 LVOT V1 VTI: 14.41 cm Mitral Valve E/A Ratio: 1.01 [place] [address] 2 D/M-MODE ECHOCARDIOGRAM Name: ASTON GONZALEZ Room: [address] IN [facility]#: [id number] Admission: 07/24/21 Attend Phys: Elias Menon Discharge: Date of : 56 Date of Service: 07/24/21 1633 Report #: [id number] MV Decel. Time: 177.64 ms MV E Max Alex.: 0.59 m/s MV PHT: 51.52 ms MVA (PHT): 4.27 cm2 TDI E/Lateral E': 9.83 E/Medial E': 9.83 Medial E' Alex.: 0.06 m/s Lateral E' Alex.: 0.06 m/s Pulmonary Valve PV Peak Alex.: 0.84 m/s PV Peak Gr.: 2.82 mmHg Tricuspid Valve RAP Estimate: 5.00 mmHg TR Peak Gr.: 20.82 mmHg RVSP: 25.82 mmHg PA Pressure: 25.82 mmHg Left Ventricle The left ventricle is normal size. There is normal LV segmental wall motion. There is normal left ventricular wall thickness. Left ventricular systolic function is normal. LVEF is 60-65%. Transmitral Doppler flow pattern suggests impaired LV relaxation. Right Ventricle The right ventricle is normal size. The right ventricular systolic function is normal. Atria The left atrium size is normal. The right atrium size is normal. Aortic Valve The aortic valve is normal in structure. No aortic regurgitation is present. There is no aortic valvular stenosis. Mitral Valve The mitral valve is normal in structure. Mild mitral regurgitation. No evidence of mitral valve stenosis. Tricuspid Valve The tricuspid valve is normal in structure. Trace tricuspid regurgitation. No pulmonary hypertension. Pulmonic Valve The pulmonary valve is normal in structure. [place] [address] 2 D/M-MODE ECHOCARDIOGRAM Name: SOFIAJACKYASTON LIAM Room: [address] IN [facility]#: [id number] Admission: 07/24/21 Attend Phys: Elias Menon Discharge: Date of : 56 Date of Service: 07/24/21 1633 Report #: [id number] valvular regurgitation. Great Vessels The aortic root is normal in size. The aortic root is not well visualized but is probably normal size. IVC is normal in size and collapses >50% with inspiration. Pericardium There is no pericardial effusion. <Conclusion> The left ventricle is normal size. There is normal left ventricular wall thickness. Left ventricular systolic function is normal. LVEF is 60-65%. Transmitral Doppler flow pattern suggests impaired LV relaxation. There is normal LV segmental wall motion. Mild mitral regurgitation. Trace tricuspid regurgitation. No pulmonary hypertension. <ELECTRONICALLY SIGNED> By: Moiz Andrea MD, FACC 07/24/21 1633 1633 1633 Moiz Andrea MD, FACC /INF
[2021-07-24 20:56] VITALS: BP 137/75
[2021-07-24 22:30] VITALS: BP 130/67
[2021-07-25] VITALS: BP 129/68
[2021-07-25 04:00] VITALS: BP 126/73
[2021-07-25 04:46] LABS: CALCIUM 8.8 mg/dL (8.5-10.1); CREATININE 0.7 mg/dL (0.6-1.3); MAGNESIUM 1.8 mg/dL (1.8-2.4); PHOSPHORUS* 3.1 mg/dL (2.5-4.9); POTASSIUM 3.7 mmol/L (3.5-5.1)
[2021-07-25 09:00] VITALS: BP 1259/66
[2021-07-25] MEDS ORDERED: DILTIAZEM 24HR180 M1 PO (09:00)
[2021-07-25 12:30] VITALS: BP 136/76
[2021-07-25 15:21] VITALS: BP 134/74
[2021-07-25 20:19] VITALS: BP 149/80
[2021-07-25] MEDS ORDERED: SYMPROIC0.2 MG PO (23:16)
[2021-07-25] MEDS ORDERED: TRULANCE3 MG PO (23:16)
[2021-07-26] VITALS: BP 153/80
[2021-07-26 04:50] LABS: CALCIUM 9.1 mg/dL (8.5-10.1); CREATININE 0.8 mg/dL (0.6-1.3); POTASSIUM 4.1 mmol/L (3.5-5.1)
[2021-07-26 04:54] VITALS: BP 128/62
[2021-07-26 09:00] VITALS: BP 144/66
--- NOTE | 2021-07-26 09:29 | CON ---
[address] [address] CONSULTATION Name: ASTON GONZALEZ Room: [place] [address] ADM IN M.R.#: [id number] Admission: 07/24/21 Attend Phys: Vince Mathias Discharge: Date of : 56 Report #: [id number] THIS REPORT FOR: cc: Margarito Persaud MD, Eric K. MD Liston, Michael J. MD FACC ~ cc: Margarito Persaud MD DATE OF CONSULTATION: 07/24/2021 CARDIOLOGY CONSULT INDICATION: Supraventricular tachycardia. HISTORY OF PRESENT ILLNESS: The patient is a pleasant 61-year-old white female with no prior significant cardiac history. She was seen in the Emergency Room with complaints of right flank pain. She was noted at this time to have a heart rate in the 160s. EKG shows a supraventricular tachycardia with occasional aberrancy. She did have some mild palpitations and reports 2 episodes of passing out this past week, but was unsure why. She denies any significant chest pain or shortness of breath in this setting. She is without other cardiac complaints. PAST MEDICAL HISTORY: 1. Asthma. 2. Irritable bowel syndrome. 3. Narcolepsy. 4. GERD. 5. History of anemia. 6. Seizure disorder. 7. History of methicillin-sensitive Staph aureus, 2017. PAST SURGICAL HISTORY: 1. Bilateral total knee replacements. 2. Bilateral rotator cuff repairs. 3. Bilateral carpal tunnel release. 4. Cholecystectomy. 5. Hysterectomy. 6. Lithotripsy x 8. 7. Bilateral myringotomy. 8. Septoplasty. 9. Appendectomy. 10. Left breast biopsy that was benign. 11. Full extraction of teeth. 12. Forehead wound with surgery x 4. [address] [address] CONSULTATION Name: ASTON GONZALEZ Room: [address]#: [id number] Admission: 07/24/21 Attend Phys: Vince Mathias Discharge: Date of : 56 Report #: [id number] 13. Hydrocephalus at . 14. History of colonoscopy. 15. Miscarriage x 2. 16. D and C. 17. . FAMILY HISTORY: Noncontributory. SOCIAL HISTORY: The patient does not drink alcohol. She does not smoke cigarettes. ALLERGIES: TEGRETOL, TORADOL, LITHIUM, NONSTEROIDAL ANTI-INFLAMMATORY AGENTS, AND BEE STINGS. DOCUMENTED HOME MEDICATIONS: Albuterol inhaler q.4 hours p.r.n., Flexeril 10 mg p.r.n. 3 times daily, meloxicam 7.5 mg daily, methylphenidate 10 mg b.i.d., Zofran 4 mg oral dissolving tablet q.8 hours p.r.n., Percocet 10/325 one tablet b.i.d. p.r.n., Protonix 40 mg p.o. daily, MiraLax 17 grams daily, potassium chloride 10 mEq daily, Topamax 100 mg b.i.d., CoQ10 30 mg daily, valacyclovir 500 mg daily. REVIEW OF SYSTEMS: A 14-point review of systems is positive for right flank pain which she presented with, which has resolved. She has palpitations as outlined above. Otherwise, 14-point review of systems was unremarkable. PHYSICAL EXAMINATION: VITAL SIGNS: Presently, blood pressure 150/74, pulse is 63 and regular. GENERAL: This is a thin, pleasant female in no distress. HEENT: Normocephalic, atraumatic. Extraocular muscles intact. The patient is wearing glasses. Mucous membranes are moist. NECK: Examination of the neck shows no jugular venous distention. I do not appreciate carotid bruit. CHEST: Reveals clear lung adler without wheezes or rales. CARDIAC: Reveals a regular rhythm with normal S1, S2. I do not appreciate gallop or murmur. ABDOMEN: Reveals normal bowel sounds. The abdomen is soft and nontender. EXTREMITIES: Shows no edema. Pulses palpable. SKIN: Warm and dry. DIAGNOSTIC DATA: Initial 12-lead EKG shows what appears to be a supraventricular tachycardia with aberrant conduction and PACs. Labs are reviewed. Sodium 143, potassium 3.4, chloride 107, bicarbonate 24, BUN 16, creatinine 1.0, serum glucose 80. Liver functions [place] [address] CONSULTATION Name: CHACESARAHYJACKYASTONLyn WHEELER Room: [place] [address] ADM IN .R.#: [id number] Admission: 07/24/21 Attend Phys: Vince Mathias Discharge: Date of : 56 Report #: [id number] Troponin on arrival was 18. CBC appears to be within normal limits. Chest x-ray on arrival shows decreased inspiration with mild atelectasis, but no other acute findings. IMPRESSION AND RECOMMENDATIONS: 1. Supraventricular tachycardia. This is the patient's first episode, although it sounds as if she has been having symptoms for at least the last week or so. We will switch from her daily amlodipine to diltiazem in an effort to suppress arrhythmia. No need for anticoagulation with this particular arrhythmia. If she has significant recurrence, could consider ablation. An echocardiogram will be ordered to assess underlying cardiac structure and function. 2. Blood pressure mildly elevated at this time. We will follow clinically and make further adjustments as needed. <ELECTRONICALLY SIGNED> By: Moiz Andrea MD, FACC 07/26/21 0929 1438 [id number] Andrea MD, FACC /nt
[2021-07-26] MEDS ORDERED: TRULANCE3 MG PO (10:27)
[2021-07-26] MEDS ORDERED: SYMPROIC0.2 MG PO ×3 (10:30→10:34)
[2021-07-26 11:44] VITALS: BP 145/83
[2021-07-26] MEDS ORDERED: DICYCLOMINE HCL20 MG PO (12:01)
[2021-07-26 12:43] VITALS: BP 145/83
--- NOTE | 2021-07-30 10:21 | EKG ---
[place] [address] ELECTROCARDIOGRAM REPORT Name: ASTON GONZALEZ Room: [place] [address] DIS IN .R.#: [id number] Admission: 07/24/21 Attend Phys: Elias Menon Discharge: 07/26/21 Date of : 56 Date of Service: 07/25/21 1450 Report #: [id number] THIS REPORT FOR: //name// [facility] Test Date: 2021-07-25 Test Time: 14:50:30 Pat Name: ASTON GONZALEZ Department: Room: [place] [address] Gender: F Chin Strap Sewer: : 1960 Requested By: Elias Menon Order Number: [id number] Darlene MD: Niall Reddy Measurements Intervals [place] Rate: 64 P: 50 NV: 164 QRS: -4 QRSD: 94 T: 16 QT: 453 QTc: 468 Interpretive Statements Sinus rhythm Probable left atrial enlargement Compared to ECG 07/24/2021 12:59:33 Supraventricular tachycardia no longer present Electronically Signed On 07-30-2021 10:21:42 CDT by Niall Reddy [email or web address] <ELECTRONICALLY SIGNED> By: Niall Reddy MD, FAC 07/30/21 1021 1450 1450 Niall Reddy MD, [facility] /EPI
== END 2021-07-26 14:38 | disposition home or self-care (01) | DRG 309 ==
LOC: M.ERS 11:41 → M.2W 15:06 → M.TBA-ER 15:06 → M.2W 21:42
PROVIDERS: Nurse Practitioner Family; ADMIT Internal Medicine; ATTEND Internal Medicine
DX: I47.1 Supraventricular tachycardia (principal); N39.0 Urinary tract infection, site not specified; N20.9 Urinary calculus, unspecified; Z96.653 Presence of artificial knee joint, bilateral; K21.9 Gastro-esophageal reflux disease without esophagitis; J45.909 Unspecified asthma, uncomplicated; G40.909 Epilepsy, unspecified, not intractable, without status epilepticus; E86.0 Dehydration; E87.6 Hypokalemia; N18.9 Chronic kidney disease, unspecified; I12.9 Hypertensive chronic kidney disease with stage 1 through stage 4 chronic kidney disease, or unspecified chronic kidney disease; Z20.822 Contact with and (suspected) exposure to COVID-19; Z90.49 Acquired absence of other specified parts of digestive tract; Z90.710 Acquired absence of both cervix and uterus; Z88.8 Allergy status to other drugs, medicaments and biological substances; Z87.891 Personal history of nicotine dependence; Z23 Encounter for immunization

== ENCOUNTER 2021-09-10 09:46 | Emergency (ER) | payer MEDICARE, OTHER ==
[~2021-09-10] VITALS: Ht 147.3 cm; Wt 59.0 kg
[~2021-09-10 09:46] MED LIST changes: +DICYCLOMINE HCL20 MG PO; +DILTIAZEM 24HR180 M1 PO; +HORMONE REPLACEMENT; +SYMPROIC0.2 MG PO; +TRULANCE3 MG PO
[2021-09-10] MEDS ORDERED: DILTIAZEM ER180 M2 PO (09:54)
[2021-09-10 10:11] LABS: ABSOLUTE BASOPHILS 0.2 thou/uL (0.0-0.2); ABSOLUTE EOSINOPHILS 0.3 thou/uL (0.0-0.7); ABSOLUTE LYMPHOCYTES 2.2 thou/uL (0.8-5.3); ABSOLUTE MONOCYTES 0.8 thou/uL (0.0-1.2); ABSOLUTE NEUTROPHILS 5.1 thou/uL (1.6-8.1); BASOPHILS 2.5 %; EOSINOPHILS 3.7 %; HEMATOCRIT 40.4 % (37.0-47.0); HEMOGLOBIN 13.3 gm/dL (12.0-15.0); LYMPHOCYTES 25.9 %; MCH 28.7 pg (26.0-34.0); MCHC 32.9 g/dL (28.0-37.0); MCV 87.2 fL (80.0-100.0); MONOCYTES 9.2 %; MPV 8.4 fl. (7.2-11.1); NUCLEATED RBCS 0 /100WBC; PLATELET COUNT* 288 thou/uL (150-400); POLYS 58.7 %; RBC 4.63 mil/uL (4.20-5.00); RDW-CV 15.8 % (10.5-14.5); WBC 8.7 thou/uL (4.0-11.0)
[2021-09-10 10:27] LABS: CALCIUM 9.5 mg/dL (8.5-10.1); POTASSIUM 3.2 mmol/L (3.5-5.1)
[2021-09-10 10:40] LABS: ALBUMIN 3.9 g/dL (3.4-5.0); CK-MB MASS 0.8 ng/mL (<0.5-3.6); MAGNESIUM 1.9 mg/dL (1.8-2.4); TOTAL BILIRUBIN 0.3 mg/dL (<0.1-1.0); TOTAL PROTEIN 7.3 g/dL (6.4-8.2)
[2021-09-10 10:49] VITALS: BP 153/90
--- NOTE | 2021-09-10 11:48 | EKG ---
[place] [address] ELECTROCARDIOGRAM REPORT Name: SOFIAJACKYASTON Room: [facility]#: [id number] Admission: 09/10/21 Attend Phys: Discharge: 09/10/21 Date of : 56 Date of Service: 09/10/21 0952 Report #: [id number] THIS REPORT FOR: //name// [facility] ED Test Date: 2021-09-10 Test Time: 09:52:23 Pat Name: ASTON GONZALEZ Department: Room: Gender: F Electronic Commerce Specialist: CARLIE : 1960 Requested By: Isidoro Celis Order Number: [id number] MD: Niall Reddy Measurements Intervals [place] Rate: 174 P: 101 MN: 114 QRS: -26 QRSD: 94 T: 94 QT: 306 QTc: 521 Interpretive Statements Sinus tachycardia Borderline left axis deviation Repolarization abnormality, prob rate related Baseline wander in lead(s) V4,V5 Compared to ECG 07/25/2021 14:50:30 Sinus rhythm no longer present Electronically Signed On 09-10-2021 11:48:20 BAG GRADER by Niall Reddy [email or web address] <ELECTRONICALLY SIGNED> By: Niall Reddy MD, FACC 09/10/21 1148 0952 0952 Niall Reddy MD, FAC /EPI
== END 2021-09-10 10:50 | disposition home or self-care (01) ==
LOC: M.ERS 09:46
PROVIDERS: Family Medicine
DX: I47.1 Supraventricular tachycardia (principal); J45.909 Unspecified asthma, uncomplicated; K21.9 Gastro-esophageal reflux disease without esophagitis; Z90.49 Acquired absence of other specified parts of digestive tract; Z90.710 Acquired absence of both cervix and uterus; Z79.899 Other long term (current) drug therapy; Z91.030 Bee allergy status

== ENCOUNTER → 2021-10-12 | Outpatient (CLI) | payer MEDICARE, OTHER ==
[~2021-10-12] MED LIST changes: +DILTIAZEM ER180 M2 PO
--- NOTE | 2021-10-12 16:41 | CARDNUC ---
[place] [address] CARDIAC NUCLEAR IMAGING REPORT Name: ASTON GONZALEZ Room: [facility]#: [id number] Admission: 10/12/21 Attend Phys: Moiz Andrea, Discharge: Date of : 56 Date of Service: 10/12/21 1641 Report #: [id number] THIS REPORT FOR: cc: Margarito Persaud MD, Eric K. MD Liston, Michael J. MD [facility] ~ APPROVED REPORT Study performed: 10/12/2021 14:11:11 Exam: Nuclear Stress Test Indication: Syncope Patient Location: Out-Patient Stress Nurse: Lilian Grayson RN Ht: 4 ft 10 in Wt: 130 lbs BSA: 1.52 m2 BMI: 27.16 Medical History Medical History: Seizures, HTN Medications: diltiazem, kcl Allergies: lithium, tegretol, toradol Cardiac Risk Factors: Age, HTN Exercise History: Indeterminate Stress Test Details Stress Test: Pharmacologic stress testing performed using 0.4 mg of regadenoson per 5 mL given IV over 10 seconds. Reason for pharmacologic stress test: physical limitation. HR Resting HR: 94 bpm Max Heart Rate (APMHR): 157 bpm Max HR Achieved: 105 bpm Target HR (85% APMHR): 133 bpm % of APMHR: 66 Recovery HR: 94 bpm BP Resting BP: 158/106 mmHg Max BP: 150/107 mmHg ECG Resting ECG: Sinus Rhythm Stress ECG: Sinus Tachycardia ST Change: [place] [address] CARDIAC NUCLEAR IMAGING REPORT Name: ASTON GONZALEZ Room: [facility]#: [id number] Admission: 10/12/21 Attend Phys: Moiz Andrea, Discharge: Date of : 56 Date of Service: 10/12/21 1641 Report #: [id number] Arrhythmia: None Recovery ECG: Sinus Rhythm Recovery ST Change: None Recovery Arrhythmia: None Clinical Reason for Termination: Completed protocol The patient tolerated Lexiscan infusion without significant cardiac symptom. Stress ECG Conclusion The baseline twelve-lead EKG shows sinus rhythm without significant ST segment or T wave abnormality. EKGs obtained during and post Lexiscan infusion show sinus rhythm and sinus tachycardia with no significant ST segment changes when compared to baseline. There were no stress-induced arrhythmias. NM EXAM: Myocardial Perfusion REST/STRESS Resting Data Rest SPECT myocardial perfusion imaging was performed in supine position 30 minutes following the intravenous injection of 9.7 mCi of Tc-99m Sestamibi. Time of rest injection: 12:50 The images were gated to evaluate regional wall motion and calculate left ventricular ejection fraction. Administration Route: IV Administration Site: Right Hand Pharmacologic Stress Pharmacologic stress test was performed by injecting Regadenoson 0.4 mg IV push followed by the intravenous injection of 34.1 mCi of Tc-99m Sestamibi. Time of stress injection: 14:20 Administration Route: IV Administration Site: Right Hand Heart Rate at time of stress injection: 100 bpm. Gated Stress SPECT was performed 45 minutes after stress injection. The images were gated to evaluate regional wall motion and calculate left ventricular ejection fraction. Prone imaging was performed. Study Quality Study: Good Artifact: [place] [address] CARDIAC NUCLEAR IMAGING REPORT Name: ASTON GONZALEZ [id number] Admission: 10/12/21 Attend Phys: Moiz Andrea, Discharge: Date of : 56 Date of Service: 10/12/21 1641 Report #: [id number] Study Data At rest, the left ventricular ejection fraction was 56%.. Post stress, the left ventricular ejection was 54%.. TID = 1.00. Perfusion Perfusion images obtained at rest and post Lexiscan stress show uniform uptake of the radioisotope throughout the myocardium. There were no defects to suggest infarct or ischemia. Wall Motion Normal left ventricular wall motion. Nuclear Conclusion ECG Findings: negative for ischemia Clinical Findings: negative for ischemia Nuclear Findings: negative for ischemia Exercise Capacity: not assessed Left Ventricular Function: normal Risk Study: low Perfusion images show no defect to suggest infarct or ischemia. Left ventricular systolic function appears normal on gated studies. This is a low risk study. <Conclusion> The baseline twelve-lead EKG shows sinus rhythm without significant ST segment or T wave abnormality. EKGs obtained during and post Lexiscan infusion show sinus rhythm and sinus tachycardia with no significant ST segment changes when compared to baseline. There were no stress-induced arrhythmias. <ELECTRONICALLY SIGNED> By: Moiz Andrea MD, FACC 10/12/211640 40 40 Moiz Andrea MD, FACC /INF
== END ==
LOC: M.NUC 09-19 15:34
PROVIDERS: ATTEND Internal Medicine Cardiovascular Disease
DX: I47.1 Supraventricular tachycardia (principal); R07.9 Chest pain, unspecified

== ENCOUNTER → 2021-10-17 | Outpatient (CLI) | payer OTHER | LOC: M.CT 12:31 | PROVIDERS: ATTEND Internal Medicine Cardiovascular Disease | DX: Z13.6 Encounter for screening for cardiovascular disorders (principal); I25.10 Atherosclerotic heart disease of native coronary artery without angina pectoris ==

== ENCOUNTER 2021-10-25 09:26 | Emergency (ER) | payer MEDICARE, OTHER ==
[~2021-10-25] VITALS: Ht 147.3 cm; Wt 54.4 kg
[2021-10-25 10:12] LABS: ABSOLUTE BASOPHILS 0.2 thou/uL (0.0-0.2); ABSOLUTE EOSINOPHILS 0.2 thou/uL (0.0-0.7); ABSOLUTE LYMPHOCYTES 1.6 thou/uL (0.8-5.3); ABSOLUTE MONOCYTES 0.6 thou/uL (0.0-1.2); ABSOLUTE NEUTROPHILS 5.3 thou/uL (1.6-8.1); EOSINOPHILS 2.8 %; HEMATOCRIT 43.2 % (37.0-47.0); HEMOGLOBIN 14.2 gm/dL (12.0-15.0); LYMPHOCYTES 20.1 %; MCH 28.7 pg (26.0-34.0); MCHC 32.9 g/dL (28.0-37.0); MCV 87.2 fL (80.0-100.0); MPV 8.1 fl. (7.2-11.1); NUCLEATED RBCS 0 /100WBC; PLATELET COUNT* 322 thou/uL (150-400); POLYS 67.1 %; RBC 4.96 mil/uL (4.20-5.00); WBC 7.9 thou/uL (4.0-11.0)
[2021-10-25 10:17] LABS: CALCIUM 9.2 mg/dL (8.5-10.1); CREATININE 0.9 mg/dL (0.6-1.3); POTASSIUM 3.3 mmol/L (3.5-5.1)
[2021-10-25 10:21] LABS: ALBUMIN 3.7 g/dL (3.4-5.0); TOTAL BILIRUBIN 0.4 mg/dL (<0.1-1.0); TOTAL PROTEIN 7.1 g/dL (6.4-8.2)
--- NOTE | 2021-10-25 12:27 | EKG ---
[place] [address] ELECTROCARDIOGRAM REPORT Name: SOFIAJACKYASTON Room: [facility]#: [id number] Admission: 10/25/21 Attend Phys: Discharge: Date of : 56 Date of Service: 10/25/21 1015 Report #: [id number] THIS REPORT FOR: //name// [facility] ED Test Date: 2021-10-25 Test Time: 10:15:39 Pat Name: ASTON GONZALEZ Department: Room: Gender: Cardiology Specialist: CONRAD : 1960 Requested By: Neymar Coleman Order Number: [id number] MD: Niall Reddy Measurements Intervals [place] Rate: 87 P: 29 RI: 151 QRS: 2 QRSD: 97 T: 8 QT: 408 QTc: 491 Interpretive Statements Sinus rhythm Left atrial enlargement Borderline prolonged QT interval Compared to ECG 10/25/2021 09:29:37 Atrial abnormality now present rate has slowed Right-axis deviation no longer present Early repolarization no longer present Electronically Signed On 10-25-2021 12:27:41 CAKE PUNCHER by iNall Reddy [email or web address] <ELECTRONICALLY SIGNED> By: Niall Reddy MD, [facility] 10/25/21 1227 1015 1015 Niall Reddy MD, [facility] /EPI
--- NOTE | 2021-10-25 12:27 | EKG ---
[place] [address] ELECTROCARDIOGRAM REPORT Name: SOFIAJACKYASTON Room: [facility]#: [id number] Admission: 10/25/21 Attend Phys: Discharge: Date of : 56 Date of Service: 10/25/[address] Report #: [id number] THIS REPORT FOR: //name// [facility] ED Test Date: 2021-10-25 Test Time: 09:29:37 Pat Name: ASTON GONZALEZ Department: Room: Gender: F Zinc Furnace Charger: : 1960 Requested By: Neymar Coleman Order Number: [id number] MD: Niall Reddy Measurements Intervals [place] Rate: 161 P: 80 MI: 101 QRS: 224 QRSD: 94 T: 92 QT: 332 QTc: 544 Interpretive Statements Sinus tachycardia Right axis deviation Abnormal R-wave progression, late transition Repolarization abnormality, prob rate related Compared to ECG 09/10/2021 09:52:23 Right-axis deviation now present Electronically Signed On 10-25-2021 12:26:58 ACCOUNT ADMINISTRATOR by Niall Reddy [email or web address] <ELECTRONICALLY SIGNED> By: Niall Reddy MD, [facility] 10/25/21 1226 0929 0929 Niall Reddy MD, [facility] /EPI
[2021-10-25 13:57] VITALS: BP 163/90
== END 2021-10-25 13:58 | disposition home or self-care (01) ==
LOC: M.ERS 09:26
PROVIDERS: Emergency Medicine Emergency Medical Services
DX: I47.1 Supraventricular tachycardia (principal); J45.909 Unspecified asthma, uncomplicated; K21.9 Gastro-esophageal reflux disease without esophagitis; Z90.49 Acquired absence of other specified parts of digestive tract; Z90.710 Acquired absence of both cervix and uterus; Z79.899 Other long term (current) drug therapy; Z88.5 Allergy status to narcotic agent; Z88.8 Allergy status to other drugs, medicaments and biological substances; Z91.030 Bee allergy status

== ENCOUNTER 2021-11-06 17:54 | Emergency (ER) | payer MEDICARE, OTHER ==
[~2021-11-06] VITALS: Ht 147.3 cm; Wt 56.7 kg
[~2021-11-06 17:54] MED LIST changes: +BIOTIN5000 MCG PO; +ENEMA BOTTLE1 EACH RECTAL; +MAGNESIUM250 M1 PO; +MOTEGRITY2 MG PO; +NORCO 10-325 T1 EACH PO; +NORVASC10 MG PO; +OTHER
[2021-11-06 21:48] VITALS: BP 148/99
== END 2021-11-06 21:48 | disposition home or self-care (01) ==
LOC: M.ERS 17:54
DX: R10.31 Right lower quadrant pain (principal); K21.9 Gastro-esophageal reflux disease without esophagitis; Z96.653 Presence of artificial knee joint, bilateral; Z90.49 Acquired absence of other specified parts of digestive tract; Z90.710 Acquired absence of both cervix and uterus; J45.909 Unspecified asthma, uncomplicated; Z98.890 Other specified postprocedural states; Z79.899 Other long term (current) drug therapy; Z88.8 Allergy status to other drugs, medicaments and biological substances; Z88.6 Allergy status to analgesic agent; Z91.013 Allergy to seafood